=== PATIENT | male | born 1970 | race Caucasian/White ===

== ENCOUNTER → 2016-12-12 | Outpatient (CLI) | payer MEDICARE ==
[~2016-12-12] VITALS: Ht 165.1 cm; Wt 150.8 kg
[~2016-12-12] MED LIST: ALLO100T PO; ATOR40TA28 PO; BUME1TAB30 PO; CALC25 PO; CARV25 PO; CHOL200016 PO; INSU3INS3 SQ; LISI-662 PO; SEVEC800 PO; TRIA15OI6 TP
[2016-12-12 14:35] VITALS: BP 144/74
== END | disposition home or self-care (01) ==
LOC: HBOWC 13:14
PROVIDERS: ATTEND Emergency Medicine
DX: E11.622 Type 2 diabetes mellitus with other skin ulcer (principal); I87.2 Venous insufficiency (chronic) (peripheral); L97.821 Non-pressure chronic ulcer of other part of left lower leg limited to breakdown of skin; L97.811 Non-pressure chronic ulcer of other part of right lower leg limited to breakdown of skin; E11.22 Type 2 diabetes mellitus with diabetic chronic kidney disease; I12.9 Hypertensive chronic kidney disease with stage 1 through stage 4 chronic kidney disease, or unspecified chronic kidney disease; N18.9 Chronic kidney disease, unspecified; E66.01 Morbid (severe) obesity due to excess calories; E78.5 Hyperlipidemia, unspecified; E11.40 Type 2 diabetes mellitus with diabetic neuropathy, unspecified; E03.9 Hypothyroidism, unspecified; Z79.4 Long term (current) use of insulin; M21.42 Flat foot [pes planus] (acquired), left foot; M21.41 Flat foot [pes planus] (acquired), right foot

== ENCOUNTER → 2021-08-09 | Outpatient (CLI) | payer MEDICARE, OTHER ==
[~2021-08-09] MED LIST changes: -ALLO100T PO; +ALLO100T2 PO; -BUME1TAB30 PO; +BUME1TAB34 PO; +CALC0.2521 PO; -CALC25 PO; -LISI-662 PO; +LISI-894 PO; +SEVE800T17 PO; -SEVEC800 PO
[2021-08-09 11:24] VITALS: BP 160/92
== END | disposition home or self-care (01) ==
LOC: SRCNTR 10:11
PROVIDERS: ATTEND Internal Medicine Critical Care Medicine
DX: E78.5 Hyperlipidemia, unspecified (principal); I25.10 Atherosclerotic heart disease of native coronary artery without angina pectoris; I48.0 Paroxysmal atrial fibrillation; N18.6 End stage renal disease; I16.0 Hypertensive urgency; J96.90 Respiratory failure, unspecified, unspecified whether with hypoxia or hypercapnia; I73.9 Peripheral vascular disease, unspecified; G47.33 Obstructive sleep apnea (adult) (pediatric); M00.00 Staphylococcal arthritis, unspecified joint; B95.61 Methicillin susceptible Staphylococcus aureus infection as the cause of diseases classified elsewhere; K65.9 Peritonitis, unspecified; K92.2 Gastrointestinal hemorrhage, unspecified; K20.90 Esophagitis, unspecified without bleeding; J15.1 Pneumonia due to Pseudomonas; E66.01 Morbid (severe) obesity due to excess calories; Z89.511 Acquired absence of right leg below knee; Z95.5 Presence of coronary angioplasty implant and graft
CPT/HCPCS: G0463; Z7500

== ENCOUNTER → 2021-11-08 | Outpatient (CLI) | payer MEDICARE, OTHER ==
[~2021-11-08] MED LIST changes: +ALLO-97 PO; -ALLO100T2 PO
[2021-11-08 10:51] VITALS: BP 139/69
== END | disposition home or self-care (01) ==
LOC: SRCNTR 10:04 → EDSTATUS 10:40
PROVIDERS: ATTEND Internal Medicine Critical Care Medicine
DX: I16.0 Hypertensive urgency (principal); I25.10 Atherosclerotic heart disease of native coronary artery without angina pectoris; I48.0 Paroxysmal atrial fibrillation; J96.90 Respiratory failure, unspecified, unspecified whether with hypoxia or hypercapnia; I73.9 Peripheral vascular disease, unspecified; I25.5 Ischemic cardiomyopathy; G47.33 Obstructive sleep apnea (adult) (pediatric); E78.5 Hyperlipidemia, unspecified; K81.9 Cholecystitis, unspecified; K20.91 Esophagitis, unspecified with bleeding; J15.1 Pneumonia due to Pseudomonas; E66.01 Morbid (severe) obesity due to excess calories; Z95.5 Presence of coronary angioplasty implant and graft; Z98.890 Other specified postprocedural states
CPT/HCPCS: G0463

== ENCOUNTER → 2022-03-07 | Outpatient (CLI) | payer MEDICARE, OTHER ==
[2022-03-07 10:39] VITALS: BP 174/97
== END | disposition home or self-care (01) ==
LOC: SRCNTR 10:25
PROVIDERS: ATTEND Internal Medicine Pulmonary Disease
DX: I12.0 Hypertensive chronic kidney disease with stage 5 chronic kidney disease or end stage renal disease (principal); N18.6 End stage renal disease; I48.0 Paroxysmal atrial fibrillation; G47.33 Obstructive sleep apnea (adult) (pediatric); I25.10 Atherosclerotic heart disease of native coronary artery without angina pectoris; J96.90 Respiratory failure, unspecified, unspecified whether with hypoxia or hypercapnia; I73.9 Peripheral vascular disease, unspecified; E78.5 Hyperlipidemia, unspecified; E66.01 Morbid (severe) obesity due to excess calories; Z95.5 Presence of coronary angioplasty implant and graft
CPT/HCPCS: G0463

== ENCOUNTER → 2022-08-11 | Outpatient (CLI) | payer MEDICARE, OTHER ==
[2022-08-11 12:59] VITALS: BP 134/51
== END | disposition home or self-care (01) ==
LOC: SRCNTR 11:57
PROVIDERS: ATTEND Internal Medicine Pulmonary Disease
DX: I12.0 Hypertensive chronic kidney disease with stage 5 chronic kidney disease or end stage renal disease (principal); N18.6 End stage renal disease; G47.33 Obstructive sleep apnea (adult) (pediatric); I48.0 Paroxysmal atrial fibrillation; I25.10 Atherosclerotic heart disease of native coronary artery without angina pectoris; I25.5 Ischemic cardiomyopathy; E78.5 Hyperlipidemia, unspecified; E66.01 Morbid (severe) obesity due to excess calories; I73.9 Peripheral vascular disease, unspecified; J96.90 Respiratory failure, unspecified, unspecified whether with hypoxia or hypercapnia; Z95.5 Presence of coronary angioplasty implant and graft; Z90.49 Acquired absence of other specified parts of digestive tract
CPT/HCPCS: G0463

== ENCOUNTER → 2023-06-28 | Outpatient (CLI) | payer MEDICARE, OTHER, MEDICAID ==
[~2023-06-28] MED LIST changes: -SEVE800T17 PO; +SEVE800T38 PO; +TIOT4MIS3 PO
[2023-06-28 11:45] VITALS: BP 158/79; PULSE 72; RESP 16; TEMP 98.5; O2SAT 99
== END | disposition home or self-care (01) ==
LOC: SRCNTR 11:29
PROVIDERS: ATTEND Internal Medicine Pulmonary Disease
DX: I12.0 Hypertensive chronic kidney disease with stage 5 chronic kidney disease or end stage renal disease (principal); N18.6 End stage renal disease; G47.33 Obstructive sleep apnea (adult) (pediatric); E66.01 Morbid (severe) obesity due to excess calories; I48.0 Paroxysmal atrial fibrillation; I73.9 Peripheral vascular disease, unspecified; I25.10 Atherosclerotic heart disease of native coronary artery without angina pectoris; I25.5 Ischemic cardiomyopathy; E78.5 Hyperlipidemia, unspecified; Z95.5 Presence of coronary angioplasty implant and graft; Z89.511 Acquired absence of right leg below knee
CPT/HCPCS: G0463

== ENCOUNTER → 2024-01-01 | Outpatient (CLI) | payer MEDICARE, OTHER ==
[~2024-01-01] MED LIST changes: -BUME1TAB34 PO; +BUME1TAB50 PO
[2024-01-01 11:20] VITALS: BP 149/80; PULSE 72; RESP 21; TEMP 98.3; O2SAT 98
== END | disposition home or self-care (01) ==
LOC: SRCNTR 10:27
PROVIDERS: ATTEND Internal Medicine Pulmonary Disease
DX: G47.33 Obstructive sleep apnea (adult) (pediatric) (principal); I12.0 Hypertensive chronic kidney disease with stage 5 chronic kidney disease or end stage renal disease; N18.6 End stage renal disease; I48.0 Paroxysmal atrial fibrillation; I73.9 Peripheral vascular disease, unspecified; Z95.5 Presence of coronary angioplasty implant and graft; I25.10 Atherosclerotic heart disease of native coronary artery without angina pectoris; E78.5 Hyperlipidemia, unspecified; I25.5 Ischemic cardiomyopathy; Z88.8 Allergy status to other drugs, medicaments and biological substances; Z91.030 Bee allergy status; Z79.899 Other long term (current) drug therapy
CPT/HCPCS: G0463; Z7500